=== PATIENT | female | born 2000 | race Caucasian/White ===

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

== ENCOUNTER 2023-03-01 09:24 | Emergency (ER) | payer BC, OTHER, MEDICAID, SELFPAY ==
[2023-03-01] VITALS (13 sets, daily range): BP systolic 101–117; BP diastolic 56–68; PULSE 98–122; RESP 16–24; TEMP 36.8–38.1; O2SAT 98–100; BMI 17.7
--- NOTE | 2023-03-01 09:36 | DI.RAD.S_ITS ---
PROCEDURE: XR CHEST 1V INDICATIONS: suspected sepsis TECHNIQUE: One view of the chest was acquired. COMPARISON: None. FINDINGS: Surgical changes and devices: None. Lungs and pleura: Lungs are clear. No pleural effusions or pneumothorax. Mediastinum: Mediastinal contours appear normal. Heart size is normal. Bones and chest wall: No suspicious bony lesions. Overlying soft tissues appear unremarkable. IMPRESSION: No acute radiographic abnormality. Dictated by: Vlad Umanzor M.D. on 03/01/2023 at 10:23 Approved by: Vlad Umanzor M.D. on 03/01/2023 at 10:24
[2023-03-01 10:13] LABS: Alanine Aminotransferase 21 IU/L (<35); Albumin 4.8 g/dL (3.5-5.0); Albumin Globulin Ratio 1.4 (1.0-2.8); Alkaline Phosphatase 51 U/L (38-126); Aspartate Aminotransferase 28 IU/L (14-36); Bilirubin Total 1.1 mg/dL (0.2-1.3); Blood Urea Nitrogen 20 mg/dL (7-17); Calcium 9.5 mg/dL (8.4-10.2); Carbon Dioxide 23 mmol/L (22-32); Chloride 103 mmol/L (98-107); Estimated Glomerular Filt Rate > 60 mL/min (>60); Globulin 3.4 g/dL (1.7-4.1); Glucose 162 mg/dL (70-100); HEMOLYSIS < 15 (0-50); Lipase 68 U/L (23-300); Potassium 4.4 mmol/L (3.4-5.1); Sodium 139 mmol/L (137-145); Total Protein 8.2 g/dL (6.3-8.2)
[2023-03-01 10:15] LABS: Lactate (Lactic Acid) 1.8 mmol/L (0.7-2.1)
[2023-03-01] MEDS: SODIUM CHLORIDE 0.9% 1,000 ML 1000 ML IV (10:15)
[2023-03-01 10:16] LABS: COVID19 -Nasal RAPID Negative (Negative)
[2023-03-01 10:30] LABS: Procalcitonin 0.95 ng/mL (<0.5)
[2023-03-01 10:38] LABS: INR 1.2 (0.9-1.3); Prothrombin Time 14.2 SECONDS (10.1-12.7)
--- NOTE | 2023-03-01 10:40 | ED_ITS ---
HPI - Nausea/Vomiting/Diarrhea General Chief complaint: Fever Stated complaint: V since 11 pm collasped at home Time Seen by Provider: 03/01/23 10:39 Source: patient Mode of arrival: Ambulatory History of Present Illness HPI Narrative: This is a 22-year-old female history of vertigo who takes meclizine as needed, patient presents with complaint of vomiting and diarrhea since last night. She states she would episodes about hourly overnight. She was febrile here in the department. She denies cold cough or congestion. No chest pain or shortness of breath. She is had a little bit of abdominal discomfort she states on both sides lower pelvic. Patient states little bit flank pain bilaterally. Patient states she is had nausea and vomiting which has improved after medication here. She denies any black or bloody stools but states it was frequent and liquidy. Patient denies dysuria, urgency frequency or hematuria. No vaginal bleeding or discharge. Patient states she takes meclizine as needed when she has vertigo. She is not currently having any vertigo symptoms this week. Patient states no prior surgeries. No known drug allergies. She denies active tobacco use, occasional alcohol but none recent, occasional THC but states she quit little while ago and no other recreational drugs. Patient is accompanied by her monty yolandee. She does note that she had possible sick contacts in the last week with a co-worker. Related Data Previous Rx's Medication Instructions Recorded ondansetron 4 mg disintegrating 4 mg PO QID PRN nausea and 03/01/23 tablet vomiting #10 tabs Allergies Allergy/AdvReac Type Severity Reaction Status Date / Time No Known Drug Allergies Allergy Unverified 09/05/21 14:03 Review of Systems Review of Systems ROS Unobtainable: All systems reviewed & are unremarkable except as noted in HPI and below Patient History Social History Smoking Status: Current some day smoker Smoking Status: Current some day smoker alcohol intake frequency: a few times a month Substance Use Type: marijuana Exam Narrative Exam Narrative: GENERAL: Alert and oriented x three, female in mild distress HEENT: Head normocephalic, atraumatic, EOMI, pupils reactive, face symmetric, moist mucous membranes NECK: Supple, full range of motion CARDIOVASCULAR: Slightly tachycardic Regular rate and rhythm without murmurs, rubs or gallops. No JVD. No swelling bilateral lower extremities. RESPIRATORY: Breath sounds equal bilaterally, no wheezes rales or rhonchi. No tachypnea or accessory muscle use. Speaks in full sentences. ABDOMEN: Soft, nontender. Nondistended. Normoactive bowel sounds all 4 quadrants. No guarding or rebound, rigidity, no mass : No CVA tenderness EXTREMITIES: Normal range of motion, no clubbing or edema. Neurovascularly intact NEUROLOGICAL: Cranial nerves II through XII grossly intact. Moving all extremities SKIN: Warm, dry, no petechiae, no rashes or lesions. Initial Vital Signs Initial Vital Signs: Vital Signs Temperature 100.5 F H 03/01/23 09:25 Pulse Rate 122 H 03/01/23 09:25 Respiratory Rate 24 03/01/23 09:25 Blood Pressure 108/67 03/01/23 09:25 Pulse Oximetry 99 03/01/23 09:25 Oxygen Delivery Method Room Air 03/01/23 09:25 Course Orders Ordered: ED Orders 03/01/23 10:00 GI Panel (Film Array) Stat 03/01/23 10:11 Urine Microscopic Stat 03/01/23 10:15 Blood Culture Stat Discontinued Medications Acetaminophen (Acetaminophen 325 Mg Tablet) 975 mg PO NOW ONE Stop: 03/01/23 10:42 Last Admin: 03/01/23 10:56 Dose: 975 mg Documented By: AMU Sodium Chloride (Normal Saline 0.9%) 1,000 mls @ 1,000 mls/hr IV BOLUS ONE Stop: 03/01/23 10:35 Last Infusion: 03/01/23 11:05 Dose: 0 mls/hr Documented By: Admin: 03/01/23 10:15 Dose: 1,000 mls/hr Documented By: AMU Sodium Chloride (Normal Saline 0.9%) 1,675.5 mls @ 558.5 mls/hr 30 ml/kg infuse over 3 hr (1675.5 ml) IV NOW ONE Stop: 03/01/23 13:39 Last Admin: 03/01/23 10:56 Dose: 558.5 mls/hr Documented By: AMU Ondansetron HCl (Ondansetron 4 Mg Odt) 4 mg SL NOW PRN PRN Reason: Nausea And Vomiting Ondansetron HCl (Ondansetron 4 Mg/2 Ml Inj) 4 mg IV NOW PRN PRN Reason: Nausea And Vomiting Vital Signs Vital signs: Vital Signs - 8 hr 03/01/23 11:00 03/01/23 11:00 03/01/23 11:30 Temperature Pulse Rate 108 H Respiratory Rate 19 Blood Pressure 111/65 111/57 L Pulse Oximetry 100 Oxygen Delivery Method 03/01/23 11:30 03/01/23 12:00 03/01/23 12:00 Temperature Pulse Rate 108 H 100 H Respiratory Rate 20 19 Blood Pressure 117/56 L Pulse Oximetry 98 98 Oxygen Delivery Method 03/01/23 12:37 03/01/23 12:38 03/01/23 12:30 Temperature 98.3 F 98.3 F Pulse Rate Respiratory Rate Blood Pressure 101/57 L Pulse Oximetry Oxygen Delivery Method 03/01/23 12:30 03/01/23 13:00 03/01/23 13:00 Temperature Pulse Rate 107 H 106 H Respiratory Rate 17 20 Blood Pressure 103/59 L Pulse Oximetry 98 98 Oxygen Delivery Method 03/01/23 13:30 Temperature Pulse Rate 98 H Respiratory Rate 22 Blood Pressure Pulse Oximetry 99 Oxygen Delivery Method Room Air MDM - Nausea/Vomiting/Diarrhea Lab Data 03/01/23 09:50 03/01/23 09:50 Labs: Lab Results 03/01/23 03/01/23 03/01/23 Range/Units 09:50 09:50 09:50 WBC 11.8 H (4.5-11.0) X10^3/uL RBC 5.09 (4.0-5.2) X10^6/uL Hgb 14.7 (12.0-16.0) g/dL Hct 44.8 (36-46) % MCV 88.2 (80-100) fL MCH 29.0 (26-34) PG MCHC 32.9 (30-36) % RDW 13.1 (11.6-14.8) % Plt Count 241 (150-400) X10^3/uL Neut % (Auto) 93.9 H (50-75) % Lymph % (Auto) 2.0 L (25-40) % [place] % (Auto) 3.9 (3-14) % Eos % (Auto) 0.0 L (2-4) % Baso % (Auto) 0.2 (0-2) % Neut # (Auto) 03250 H (9420-8968) /uL Lymph # (Auto) 200 L (6669-5873) /uL [place] # (Auto) 500 (0-900) /uL Eos # (Auto) 0 (0-450) /uL Baso # (Auto) 0 (0-100) /uL PT 14.2 H (10.1-12.7) SECONDS INR 1.2 (0.9-1.3) APTT 29 (26-36) SECONDS Sodium 139 (137-145) mmol/L Potassium 4.4 (3.4-5.1) mmol/L Chloride 103 (98-107) mmol/L Carbon Dioxide 23 (22-32) mmol/L BUN 20 H (7-17) mg/dL Creatinine 0.74 (0.52-1.04) mg/dL Estimated GFR > 60 (>60) mL/min BUN/Creatinine Ratio 27.0 H (6-22) Glucose 162 H (70-100) mg/dL Lactate (0.7-2.1) mmol/L Calcium 9.5 (8.4-10.2) mg/dL Total Bilirubin 1.1 (0.2-1.3) mg/dL AST 28 (14-36) IU/L ALT 21 (<35) IU/L Alkaline Phosphatase 51 (38-126) U/L Total Protein 8.2 (6.3-8.2) g/dL Albumin 4.8 (3.5-5.0) g/dL Globulin 3.4 (1.7-4.1) g/dL Albumin/Globulin Ratio 1.4 (1.0-2.8) Lipase 68 (23-300) U/L Procalcitonin 0.95 H (<0.5) ng/mL Stl C. cayetanensis PCR (Not Detect) Stool Rotavirus (PCR) (Not Detect) Stool Adenovirus (PCR) (Not Detect) Stool Astrovirus (PCR) (Not Detect) Stool Cryptosporidium PCR (Not Detect) Stl E.coli Shiga Tox PCR (Not Detect) St Sh/Enteroin Ecoli PCR (Not Detect) Stool E coli O157 PCR (Not Detect) Stl Enterotoxigenic E PCR (Not Detect) Stool EPEC (PCR) (Not Detect) Stl E. histolytica PCR (Not Detect) Stool Giardia Lamblia PCR (Not Detect) Stool Sapovirus (PCR) (Not Detect) Stl P. shigelloides PCR (Not Detect) St Y.enterocolitica PCR (Not Detect) Stool Vibrio (PCR) (Not Detect) Stl Vibrio cholerae PCR (Not Detect) Stl Enteroaggr Ecoli PCR (Not Detect) Stl Norovirus GI/GII PCR (Not Detect) Campylobacter (PCR) (Not Detect) C. difficile Tox (PCR) (Not Detect) SARS-CoV-2 (PCR) (Negative) Salmonella (PCR) (Not Detect) 03/01/23 03/01/23 03/01/23 Range/Units 09:50 09:50 10:00 WBC (4.5-11.0) X10^3/uL RBC (4.0-5.2) X10^6/uL Hgb (12.0-16.0) g/dL Hct (36-46) % MCV (80-100) fL MCH (26-34) PG MCHC (30-36) % RDW (11.6-14.8) % Plt Count (150-400) X10^3/uL Neut % (Auto) (50-75) % Lymph % (Auto) (25-40) % [place] % (Auto) (3-14) % Eos % (Auto) (2-4) % Baso % (Auto) (0-2) % Neut # (Auto) (5555-7246) /uL Lymph # (Auto) (4805-3886) /uL [place] # (Auto) (0-900) /uL Eos # (Auto) (0-450) /uL Baso # (Auto) (0-100) /uL PT (10.1-12.7) SECONDS INR (0.9-1.3) APTT (26-36) SECONDS Sodium (137-145) mmol/L Potassium (3.4-5.1) mmol/L Chloride (98-107) mmol/L Carbon Dioxide (22-32) mmol/L BUN (7-17) mg/dL Creatinine (0.52-1.04) mg/dL Estimated GFR (>60) mL/min BUN/Creatinine Ratio (6-22) Glucose (70-100) mg/dL Lactate 1.8 (0.7-2.1) mmol/L Calcium (8.4-10.2) mg/dL Total Bilirubin (0.2-1.3) mg/dL AST (14-36) IU/L ALT (<35) IU/L Alkaline Phosphatase (38-126) U/L Total Protein (6.3-8.2) g/dL Albumin (3.5-5.0) g/dL Globulin (1.7-4.1) g/dL Albumin/Globulin Ratio (1.0-2.8) Lipase (23-300) U/L Procalcitonin (<0.5) ng/mL Stl C. cayetanensis PCR Not detected (Not Detect) Stool Rotavirus (PCR) Not detected (Not Detect) Stool Adenovirus (PCR) Not detected (Not Detect) Stool Astrovirus (PCR) Not detected (Not Detect) Stool Cryptosporidium PCR Not detected (Not Detect) Stl E.coli Shiga Tox PCR Not detected (Not Detect) St Sh/Enteroin Ecoli PCR Not detected (Not Detect) Stool E coli O157 PCR Not detected (Not Detect) Stl Enterotoxigenic E PCR Not detected (Not Detect) Stool EPEC (PCR) Not detected (Not Detect) Stl E. histolytica PCR Not detected (Not Detect) Stool Giardia Lamblia PCR Not detected (Not Detect) Stool Sapovirus (PCR) Not detected (Not Detect) Stl P. shigelloides PCR Not detected (Not Detect) St Y.enterocolitica PCR Not detected (Not Detect) Stool Vibrio (PCR) Not detected (Not Detect) Stl Vibrio cholerae PCR Not detected (Not Detect) Stl Enteroaggr Ecoli PCR Not detected (Not Detect) Stl Norovirus GI/GII PCR Detected H (Not Detect) Campylobacter (PCR) Not detected (Not Detect) C. difficile Tox (PCR) Not detected (Not Detect) SARS-CoV-2 (PCR) Negative (Negative) Salmonella (PCR) Not detected (Not Detect) Point of Care Testing Test Results Negative Urine Dip Bedside Urine Glucose Negative Bedside Urine Bilirubin - Negative Bedside Urine Ketone +++ 80 Urine Specific [place] 1.030 Bedside Urine Occult Blood +/- Bedside Urine pH 6.0 Bedside Urine Protein + 30 Bedside Urine Urobilinogen - Negative Bedside Urine Nitrite - Negative Bedside Urine Leukocytes - Negative Esterase MDM Narrative Medical decision making narrative: This is a 22-year-old female who presents with complaint of vomiting and diarrhea with fever that started last night abruptly. Patient has had some generalized lower abdominal pain. She is nontender on exam. Overall she is been tachycardic, slightly febrile was given Tylenol receiving a 30 cc/kilos fluid bolus. Labs show white count of 11.8 with leftward shift, no bandemia. Coags are negative, BUN 20 with normal creatinine, glucose is 162 with otherwise normal LFTs and lactate. Procalcitonin is elevated at 0.95. Patient was able to give a stool sample. Patient was positive for norovirus. Slightly ta chycardic but improved, patient has not been hypotensive. My suspicion for bacterial infection is much lower she is well-appearing on recheck. She is not had persistent vomiting or diarrhea in the department. Plan for Zofran for home, self isolation and return precautions. Discharge Plan Departure Patient Disposition: Home Clinical Impression: Infection due to Norovirus species, Nausea, vomiting, and diarrhea Instructions: DI for Norovirus Infection Activity Restrictions/Additional Instructions: You have a viral illness that often causes vomiting and diarrhea called norovirus. You may take Zofran 1 tablet every 6 hours as needed for nausea and vomiting. Prescription sent to [facility]. Please return for persistent fevers beyond several days, persistent vomiting, black or bloody stools, new or worsening abdominal pain, signs of dehydration, passing out or other new or concerning changes Prescriptions: New ondansetron 4 mg tablet,disintegrating 4 mg PO QID PRN (Reason: nausea and vomiting) Qty: 10 0RF Referrals: Miscellaneous,DoctorMD [Primary Care Provider] - Stand Alone Forms: Patient Portal/API, Work Release Note
[2023-03-01 10:41] LABS: PTT Partial Thromboplastin Tim 29 SECONDS (26-36)
[2023-03-01 10:42] LABS: Add Manual Diff / Slide Review NO; Basophils Absolute Auto 0 /uL (0-100); Basophils Percent Auto 0.2 % (0-2); Eosinophils Absolute Auto 0 /uL (0-450); Hematocrit 44.8 % (36-46); Hemoglobin 14.7 g/dL (12.0-16.0); Lymphocytes Absolute Auto 200 /uL (1100-4500); Mean Corpuscular HGB Conc 32.9 % (30-36); Mean Corpuscular Volume 88.2 fL (80-100); Monocytes Absolute Auto 500 /uL (0-900); Monocytes Percent Auto 3.9 % (3-14); Neutrophils Absolute Auto 11100 /uL (1500-7000); Neutrophils Percent Auto 93.9 % (50-75); Platelet Count 241 X10^3/uL (150-400); Red Blood Cell Count 5.09 X10^6/uL (4.0-5.2); Red Cell Distribution Width 13.1 % (11.6-14.8); White Blood Cell Count 11.8 X10^3/uL (4.5-11.0)
[2023-03-01] MEDS: ACETAMINOPHEN 325 MG TABLET 975 MG PO (10:56)
[2023-03-01] MEDS: SODIUM CHLORIDE 0.9% 558.5 ML IV (10:56)
[2023-03-01 13:02] LABS: Adenovirus F 40/41 Not Detected (Not Detect); Astrovirus Not Detected (Not Detect); Campylobacter Not Detected (Not Detect); Clostridium difficile toxin AB Not Detected (Not Detect); Cryptosporidium Not Detected (Not Detect); Cyclospora cayetanensis Not Detected (Not Detect); Entamoeba histolytica Not Detected (Not Detect); Enteroaggregative E.coli Not Detected (Not Detect); Enteropathogenic E.coli Not Detected (Not Detect); Enterotoxigenic E.coli It/st Not Detected (Not Detect); Giardia lamblia Not Detected (Not Detect); Plesiomonsa shigelloides Not Detected (Not Detect); Salmonella Not Detected (Not Detect); Shiga-like toxin-prod E.coli Not Detected (Not Detect); Shigella/Enteroinvasive E.coli Not Detected (Not Detect); Vibrio Not Detected (Not Detect); Vibrio cholerae Not Detected (Not Detect); Yersinia enterocolitica Not Detected (Not Detect)
[2023-03-01 13:03] LABS: Norovirus GI/GII Detected (Not Detect); Rotavirus A Not Detected (Not Detect); Sapovirus Not Detected (Not Detect)
== END 2023-03-01 14:02 | disposition home or self-care (01) ==
PROVIDERS: Emergency Provider Emergency Medicine
DX: A08.11 Acute gastroenteropathy due to Norwalk agent (principal); R19.7 Diarrhea, unspecified; R11.2 Nausea with vomiting, unspecified; Z20.822 Contact with and (suspected) exposure to COVID-19
CPT/HCPCS: 36415; 71045; 80053; 81003; 81025; 83605; 83690; 84145; 85025; 85610; 85730; 87040; 87507; 87635; 96360; 99284; C9803